=== PATIENT | male | born 1995 | race Caucasian/White ===

== ENCOUNTER 2019-04-04 22:12 | Emergency (ER) | payer OTHER ==
[~2019-04-04] VITALS: Ht 162.6 cm; Wt 64.9 kg
[~2019-04-04 22:12] MED LIST: AMOX875 PO; Benadryl 50 mg50 MG PO; CEPH500 PO; CYCL10 PO; Keflex500 MG PO; Lice Cream Rin120 ML TP; Motrin800 MG PO; Naprosyn375 MG PO; Norco 5-325 Ta1 EACH PO; Percocet 5-3251 EACH PO
[2019-04-04 23:08] LABS: Source, Urine Clean Catch
[2019-04-04 23:16] LABS: Bilirubin, Urine Neg (Neg); Blood, Urine Neg (Neg); Glucose Qualitative, Urine Neg (Neg); Ketones, Urine Neg (Neg); Leukocyte Esterase, Urine Neg (Neg); Nitrite, Urine Neg (Neg); Protein, Urine Neg (Neg); Specific Gravity, Urine 1.015 (1.003-1.022); Urobilinogen, Urine NORM (Normal)
[2019-04-04 23:32] LABS: Appearance, Urine Clear (Clear); Color, Urine Yellow (P-Yellow)
[2019-04-07 03:07] LABS: CHLAMYDIA TRACHOMATIS, NAA Negative (Negative); NEISSERIA GONORRHOEAE, NAA Positive (Negative)
== END 2019-04-05 00:22 | disposition home or self-care (01) ==
LOC: ER 22:12
PROVIDERS: Physician Assistant
DX: N34.2 Other urethritis (principal)
CPT/HCPCS: 81003; 96372; 99283; J0696

== ENCOUNTER 2019-05-15 14:51 | Emergency (ER) | payer OTHER ==
[~2019-05-15] VITALS: Ht 236.2 cm; Wt 59.0 kg
== END 2019-05-15 16:48 | disposition home or self-care (01) ==
LOC: ER 14:51
DX: J11.1 Influenza due to unidentified influenza virus with other respiratory manifestations (principal)
CPT/HCPCS: 71046; 87081; 87430; 99283-25

== ENCOUNTER 2021-02-11 15:03 | Emergency (ER) | payer OTHER ==
[~2021-02-11] VITALS: Ht 162.6 cm; Wt 72.6 kg
== END 2021-02-11 16:18 | disposition home or self-care (01) ==
LOC: ER 15:03
DX: L60.0 Ingrowing nail (principal)
CPT/HCPCS: 11765; 99282-25

== ENCOUNTER → 2025-04-16 | Outpatient (CLI) | payer OTHER ==
[2025-04-16 15:26] LABS: BASOPHILS ABSOLUTE AUTO 0.05 K/mm3 (0.00-0.23); BASOPHILS PERCENT AUTO 1 % (0-2); EOSINOPHILS ABSOLUTE AUTO 0.20 K/mm3 (0.00-0.68); EOSINOPHILS PERCENT AUTO 2 % (0-6); Hematocrit 46.2 % (37.0-53.0); Hemoglobin 16.3 g/dL (13.5-17.5); IMMATURE GRAN ABSOLUTE AUTO 0.03 K/mm3 (0.00-0.10); IMMATURE GRAN PERCENT AUTO 0 % (0-1); LYMPHOCYTES ABSOLUTE AUTO 2.44 K/mm3 (0.84-5.20); LYMPHOCYTES PERCENT AUTO 23 % (21-46); MONOCYTES ABSOLUTE AUTO 0.75 K/mm3 (0.16-1.47); MONOCYTES PERCENT AUTO 7 % (4-13); Mean Corpuscular HGB Conc 35.3 g/dL (31.5-36.5); Mean Corpuscular Volume 84 fL (80-100); NEUTROPHILS ABSOLUTE AUTO 7.17 K/mm3 (1.96-9.15); NEUTROPHILS PERCENT AUTO 67 % (41-73); NRBC ABSOLUTE 0.00 K/mm3 (0.00-0.02); NRBC Auto 0.0 /100 WBC (0.0-0.2); Platelet Count 246 K/mm3 (150-400); RDW Coefficient Variation 11.9 % (11.7-14.2); RDW Standard Deviation 36.2 fL (35.1-46.3)
[2025-04-16 15:34] LABS: Alanine Aminotransfer (ALT/SGP 71.0 U/L (12-78); Albumin, Blood 4.2 g/dL (3.4-5.0); Albumin/Globulin Ratio 1.0 (0.8-1.8); Anion Gap 15.0 mmol/L (6-16); Aspartate Aminotrans (AST/SGOT 29.0 U/L (12-37); Bilirubin, Total 0.7 mg/dL (0.1-1.0); Blood Urea Nitrogen 12.0 mg/dL (8-24); CO2, Blood 27.0 mmol/L (21-32); Calcium, Blood 8.9 mg/dL (8.5-10.1); Chloride, Blood 100.0 mmol/L (98-108); Creatinine, Blood 1.17 mg/dL (0.60-1.20); Globulin, Blood 4.2 g/dL (2.2-4.0); Glucose, Blood 97.0 mg/dL (70-99); Potassium, Blood 3.7 mmol/L (3.5-5.5); Sodium, Blood 138.0 mmol/L (136-145); Total Protein, Blood 8.4 g/dL (6.4-8.2)
[2025-04-16 21:35] LABS: Chlamydia Trachomatis Urine DETECTED (NOT DETECT); Neisseria Gonorrhoea Urine DETECTED (NOT DETECT)
== END | disposition home or self-care (01) ==
LOC: LAB 15:20 → LAB SHORT 15:20
PROVIDERS: Family Medicine
DX: R10.32 Left lower quadrant pain (principal); R30.0 Dysuria
CPT/HCPCS: 80053; 85025; 87491; 87591

== ENCOUNTER → 2025-04-17 | Outpatient (CLI) | payer OTHER ==
[2025-04-21 08:54] LABS: HIV 1,2 COMBO ANTIGEN/ANTIBODY Negative (Negative)
== END | disposition home or self-care (01) ==
LOC: LAB 17:17 → LAB SHORT 17:17
PROVIDERS: Physician Assistant
DX: A54.9 Gonococcal infection, unspecified (principal)
CPT/HCPCS: 86592; 87389